=== PATIENT | female | born 1965 | race Caucasian/White ===

== ENCOUNTER → 2023-06-04 08:14 | Outpatient (REF) | payer BC, SELFPAY ==
[2023-06-04 09:10] LABS: % Basophils 0.9 % (0-2); % Eosinophils 2.6 % (0-6); % Immature Granulocytes 0.2 % (0-0.5); % Lymphocytes 36.1 % (20.5-51.1); % Monocytes 7.4 % (1.7-9.3); % Neutrophils 52.8 % (42.2-75.2); Absolute Basophils 0.1 10^3/uL (0-0.2); Absolute Eosinophils 0.1 10^3/uL (0-0.7); Absolute Monocytes 0.4 10^3/uL (0.1-0.6); Absolute Neutrophils 2.9 10^3/uL (1.4-6.5); Hemoglobin 12.9 g/dL (12.0-16.0); Mean Corp Hgb Conc. 32.3 g/dL (33.0-37.0); Mean Platelet Volume 10.9 fL (7.4-10.4); Nucleated Red Blood Cells % 0 %; Platelet Count 246 10^3/uL (130-400); Red Cell Dist. Width 13.9 % (11.5-14.5); White Blood Cell Count 5.4 10^3/uL (4.8-10.8)
[2023-06-04 10:06] LABS: ALT (SGPT) 29 U/L (0-35); AST (SGOT) 27 U/L (14-36); Albumin 4.4 g/dl (3.5-5.0); Alkaline Phosphatase 89 U/L (38-126); Blood Urea Nitrogen 15 mg/dl (7-17); Calcium 9.3 mg/dl (8.4-10.2); Carbon Dioxide 28 mmol/L (22-30); Chloride 105 mmol/L (98-107); Glucose 98 mg/dl (70-99); Sodium 138 mmol/L (135-145); Total Bilirubin 0.7 mg/dl (0.2-1.3); Total Protein 7.2 g/dl (6.3-8.2); eGFR > 60.00
== END ==
LOC: RCS 08:14
PROVIDERS: ATTENDING PHYSICIAN Surgery Plastic and Reconstructive Surgery; FAMILY PHYSICIAN Family Medicine
DX: Z01.818 Encounter for other preprocedural examination (principal)
CPT/HCPCS: 36415; 80053; 85025; 93005

== ENCOUNTER → 2023-06-08 12:48 | Outpatient (REF) | payer BC, SELFPAY | LOC: HWRAD 12:48 | PROVIDERS: ATTENDING PHYSICIAN Surgery Plastic and Reconstructive Surgery; FAMILY PHYSICIAN Family Medicine | DX: Z90.13 Acquired absence of bilateral breasts and nipples (principal) | CPT/HCPCS: 74174; Q9967 ==

== ENCOUNTER 2023-07-01 06:12 | Inpatient (IN) | payer BC, SELFPAY ==
[2023-07-01] VITALS (24 sets, daily range): BP systolic 123–146; BP diastolic 65–79; BMI 29.5
[2023-07-01] MEDS: LOVENOX 40 MG SC (07:09)
[2023-07-01] MEDS: NORMOSOL-R 1000 IV (07:09)
--- NOTE | 2023-07-01 08:23 | W.SUR.PREOP ---
Pre-Operative Surgical Note
-
I have examined this patient prior to the performance of the scheduled procedure.
The patient's condition is unchanged from the time of the current History and
Physical and the patient is able to undergo the scheduled procedure.
--- NOTE | 2023-07-01 17:01 | OR.RPT ---
Operative Report
Operative Report
Surgeon: Bulmaro Medrano MD
Co-surgeon: Delon Keating MD
Insulation Hoseman: Nadiya Muller MD
Pre-op diagnosis:
1.� Personal history of breast cancer
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
3. Animation deformity
Postop diagnosis: Same
Procedure:
1.� Removal of bilateral textured silicone implants
2.� Bilateral partial capsulectomies and lateral capsulorraphy
3.� Bilateral pectoralis major muscle flaps to prepare chest wall for recipient of flaps
4. Bilateral breast reconstruction with MARY flaps
5.� Bilateral internal mammary lymph node biopsies
Anesthesia: General
EBL: 150 cc
Specimens:
1.� Right periprosthetic capsule
2.� Left periprosthetic casule
3.� Right internal mammary lymph node
4.� Left internal mammary lymph node
Drains: 4 - 15 Argentine Abram drains
Complications: none
Indications:
58-year-old female with a past medical history significant for breast cancer.� She has previously undergone bilateral mastectomies and implant based breast reconstruction in the subpectoral plane.� She presented to my colleague Dr. Keating for
revisions due to her animation deformity and contour irregularities. She was interested in moving forward with autologous reconstruction. Given the anticipated bilateral MARY flap breast reconstruction, I was asked to be involved in her care given
the complexity of the case and the need for a co-surgeon to do this as safely and efficiently as possible.
Regarding bilateral free flap breast reconstruction,� she understood the nature of the surgery and all of the risk benefits alternatives were discussed at length.� Specific risks included flap failure or thrombosis, hematoma, seroma, poor wound
healing and compromise to the abdominal wall.� We discussed that her pectoralis major muscles would be returned to their original place along the chest wall and the MARY flaps would be placed on top of the muscles. All questions were answered and
consents were signed.
Operative findings:
Patient was identified in the preoperative area and consents were confirmed. The bilateral breast incisions were marked out as was the elliptical infraumbilical donor site. All questions were answered. She was brought to the operating room and
placed supine on the operative table.� General anesthesia was induced with an endotracheal tube. The arms were tucked bilaterally and a Osorio catheter was placed.� Preoperative Lovenox and antibiotics were administered, and SCDs were placed.� The
patient's bilateral breasts and abdomen were prepped and draped in normal standard fashion using chlorhexidine prep.� A timeout for patient safety was performed.
We initiated the procedure as two separate teams, with one surgeon working in the abdomen while the other surgeon was in the chest. Please see Dr. Keating's separately dictated operative note.
On the left side of the chest, the previous mastectomy scar was incised.� Electrocautery dissection was then performed to get down to the level of the implant capsule.� The capsule was then dissected up to the level of the pectoralis muscle and then
it was opened and the implant was then removed intact.� Partial capsulectomies and lateral capsulorraphy was then performed.�The pectoralis major muscle was then dissected out from the overlying skin and soft tissue and this was then inset back
along the chest wall surface with interrupted 2-0 PDS sutures. This allowed for chest wall reconstruction, returning the pec muscle back where it originally was. It also allowed for recreation of the mastectomy defect and preparation of the chest
wall for receipt of the flap for breast reconstruction.
Next, the internal mammary dissection was performed.� The muscle was split over the fourth intercostal rib and the cartilaginous portion of the rib was excised.� The underlying internal mammary vessels were then meticulously and carefully
dissected.� Once the vessels were fully dissected circumferentially these were allowed to dilate up while attention was turned to the contralateral breast.� A pectoralis block was then performed with marcaine and a 15 [place] Abram drain was placed
through a stab incision the lateral IMF.� This was secured using a 2-0 Prolene suture.
The identical procedure was then performed on the patient's right side.� Again this involved removal of the intact silicone implant, partial capsulectomies and lateral capsulorraphy, pectoralis major muscle flap for chest wall reconstruction and
preparation of the site for receipt of the flap, and internal mammary vessel dissection.� These vessels were similarly prepared and allowed to dilate up with papaverine soaked neuro patties.� A pectoralis block was similarly performed on this side
and a 15 [place] Abram drain was also placed through a stab incision in the lateral IMF on the side.
Of note, internal mammary lymph nodes were noted on both sides. These were dissected out and sent off for pathologic evaluation.
In the abdomen, bilateral MARY flaps were dissected out. This began with incising the proposed markings superiorly and dissection with a slight bevel upwards to the level of the fascia. Undermining of the supraumbilical flap continue in the midline
above the umbilicus. Laterally, this extend near but not all the way to the costal margin. The patient was then flexed at the waist and the lower incision was confirmed to be tenable without undue tension. The patient was returned supine and the
lower marking was incised with a 10 blade. SIEVs were encountered bilaterally and dissected. The flaps were then raised laterally to medially be sure to maintain the perforating vessels above the level of the fascia.� On the right side a 6
box folding machine operator MARY flap with a small muscle cuff was dissected out as there were several small perforators.�On the left side a 2 box folding machine operator MARY flap with a small muscle cuff was dissected out as there were larger caliber perforators.�Both sides
involved a tedious intramuscular dissection to minimize the amount of muscle harvested with the flap. The pedicles were dissected down to level of the iliac vessels.
The right hemiabdominal flap was then transferred up to the left chest.� The microvascular anastomosis was then performed.� This was done using a 2.5 mm chin strap maker for the venous anastomosis.� The arterial anastomosis was performed with a handsewn
technique using 8-0 nylon suture.� Upon removal of the microvascular clamps there was excellent perfusion of the flap.� The flap was then temporarily inset with aracely and attention was turned to the contralateral side.
The left hemiabdominal flap was then transferred up to the right chest.� The microvascular anastomosis was similarly performed.� On this side a 3.5 mm chin strap maker was again utilized for the venous anastomosis.� The arterial anastomosis was performed in
the same fashion as the contralateral side.� Again there was excellent perfusion noted upon removal of the vascular clamps.
While one surgeon was performing the microvascular anastomosis the other surgeon was performing the abdominal wall reconstruction.� This involved reapproximation of the muscles that was divided.� A small piece of Phasix mesh was inset as a underlay
with primary fascial closure.� The fascia was closed with layers of interrupted 0 PDS sutures and a PDS stratafix suture.�A midline abdominal plication was also peformed due to the patient's rectus diastasis.
A TAP block was performed bilaterally for postoperative analgesia.� Two 15 [place] Abram drains were placed in the abdomen.� These were similarly secured using 2-0 Prolene sutures.� The abdominal wall was then closed in a layered fashion.� 2-0 Vicryl
suture was utilized in the Bari's fascia.� The Insorb dermal stapler was then utilized for reapproximation of the deep dermis.� The superficial skin was then closed using 4-0 monoderm barbed suture.� The umbilicus was transposed.� This was inset
using a combination of 3-0 Monocryl in the deep dermis and 4-0 nylon suture superficially.
The MARY flaps were then debulked due to their excessive volume and inset. The breast skin was then revised. This was a nipple sparing reconstruction so a small triangular skin paddle was utilized at the inferior pole of the breast for monitoring. �
The skin was then closed in a layered fashion using 3-0 and 4-0 Monocryl suture.� The MARY flaps were de-epithelialized in all areas that would not be exposed prior to closure.
Doppler signals were identified on both skin islands and there was good punctate bleeding at time of deepithelialization. Signals were marked with 5-0 prolenes.
The wounds were then all dressed and the patient was extubated uneventfully.� All counts were correct at the the completion of the case.� The patient tolerated the procedure very well.� She had an excellent cosmetic outcome.� The patient was then
transferred to the ICU for postoperative� monitoring.
Dr. Vitaliy Keating was my co-surgeon for this case.� His status as a co-surgeon was critical to allow us to function as two separate teams, one in the abdomen and one in the chest, to maximize the safety and efficiency of this case for this patient.
Dr. Nadiya Muller was our assistant quality manager for this case.� Her assistance was critical and medically necessary to allow us to perform this in a safe and timely manner for this patient.� She assisted with retraction, dissection, execution, and closure of
this case.
--- NOTE | 2023-07-01 17:47 | W.IMMPOSTOP ---
Surgical Immed Post Op Note
-
Primary Surgeon: EVY Keating MD
Assisting Surgeon:
Pre-op Diagnosis: history of breast cancer
Post-op Diagnosis: same
Procedure Performed: bilateral delayed D IEP flap reconstruction, removal of bilateral breast implants, bilateral capsulectomies
Anesthesia Type: General
Specimen / Cultures: left and right breast capsules, internal mammary lymph nodes
Estimated Blood Loss: 100 cc
Complications: none
Operative Findings: as expected
--- NOTE | 2023-07-01 17:48 | OR.RPT ---
Operative Report
Operative Report
Surgeon: Delon Keating MD
Co-surgeon: Bulmaro Medrano MD
Drafter Structural: Nadiya Muller MD
Pre-op diagnosis:
1.� Personal history of breast cancer
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
3. Animation deformity
Postop diagnosis: Same
Procedure:
1.� Removal of bilateral textured silicone implants
2.� Bilateral partial capsulectomies and lateral capsulorraphy
3.� Bilateral pectoralis major muscle flaps to prepare chest wall as recipient site of flaps
4. Bilateral breast reconstruction with MARY flaps
5.� Bilateral internal mammary lymph node biopsies
Anesthesia: General
EBL: 150 cc
Specimens:
1.� Right periprosthetic capsule
2.� Left periprosthetic casule
3.� Right internal mammary lymph node
4.� Left internal mammary lymph node
Drains: 4 - 15 [place] Abram drains
Complications: none
Indications:
58-year-old female with a past medical history significant for breast cancer.� She has previously undergone bilateral mastectomies and implant based breast reconstruction in the subpectoral plane.� She presented to me for revisions due to her
animation deformity and contour irregularities. She had very thin skin and a complicated history of postoperative complications with her prior implant surgeries. She was interested in moving forward with autologous reconstruction. Given the
anticipated bilateral MARY flap breast reconstruction, I asked Dr. Bulmaro Medrano to be involved in her care given the complexity of the case and the need for a co-surgeon to do this as safely and efficiently as possible.
Regarding bilateral free flap breast reconstruction,� she understood the nature of the surgery and all of the risk benefits alternatives were discussed at length.� Specific risks included flap failure or thrombosis, hematoma, seroma, poor wound
healing and compromise to the abdominal wall.� We discussed that her pectoralis major muscles would be returned to their original place along the chest wall and the MARY flaps would be placed on top of the muscles. All questions were answered and
consents were signed.
Operative findings:
Patient was identified in the preoperative area and consents were confirmed. The bilateral breast incisions were marked out as was the elliptical infraumbilical donor site. All questions were answered. She was brought to the operating room and
placed supine on the operative table.� General anesthesia was induced with an endotracheal tube. The arms were tucked bilaterally and a Osorio catheter was placed.� Preoperative Lovenox and antibiotics were administered, and SCDs were placed.� The
patient's bilateral breasts and abdomen were prepped and draped in normal standard fashion using chlorhexidine prep.� A timeout for patient safety was performed.
We initiated the procedure as two separate teams, with one surgeon working in the abdomen while the other surgeon was in the chest. Please see Dr. Medrano's separately dictated operative note.
On the left side of the chest, the previous mastectomy scar was incised.� Electrocautery dissection was then performed to get down to the level of the implant capsule.� The capsule was then dissected up to the level of the pectoralis muscle and then
it was opened and the implant was then removed intact.� Partial capsulectomies and lateral capsulorraphy was then performed.�The pectoralis major muscle was then dissected out from the overlying skin and soft tissue and this was then inset back
along the chest wall surface with interrupted 2-0 PDS sutures. This allowed for chest wall reconstruction, returning the pec muscle back where it originally was. It also allowed for recreation of the mastectomy defect and preparation of the chest
wall for receipt of the flap for breast reconstruction.
Next, the internal mammary dissection was performed.� The muscle was split over the fourth intercostal rib and the cartilaginous portion of the rib was excised.� The underlying internal mammary vessels were then meticulously and carefully
dissected.� Once the vessels were fully dissected circumferentially these were allowed to dilate up while attention was turned to the contralateral breast.� A pectoralis block was then performed with marcaine and a 15 [place] Abram drain was placed
through a stab incision the lateral IMF.� This was secured using a 2-0 Prolene suture.
The identical procedure was then performed on the patient's right side.� Again this involved removal of the intact silicone implant, partial capsulectomies and lateral capsulorraphy, pectoralis major muscle flap for chest wall reconstruction and
preparation of the site for receipt of the flap, and internal mammary vessel dissection.� These vessels were similarly prepared and allowed to dilate up with papaverine soaked neuro patties.� A pectoralis block was similarly performed on this side
and a 15 [place] Abram drain was also placed through a stab incision in the lateral IMF on the side.
Of note, internal mammary lymph nodes were noted on both sides. These were dissected out and sent off for pathologic evaluation.
In the abdomen, bilateral MARY flaps were dissected out. This began with incising the proposed markings superiorly and dissection with a slight bevel upwards to the level of the fascia. Undermining of the supraumbilical flap continue in the midline
above the umbilicus. Laterally, this extend near but not all the way to the costal margin. The patient was then flexed at the waist and the lower incision was confirmed to be tenable without undue tension. The patient was returned supine and the
lower marking was incised with a 10 blade. SIEVs were encountered bilaterally and dissected. The flaps were then raised laterally to medially be sure to maintain the perforating vessels above the level of the fascia.� On the right side a 6
energy assistant MARY flap with a small muscle cuff was dissected out as there were several small perforators.�On the left side a 2 energy assistant MARY flap with a small muscle cuff was dissected out as there were larger caliber perforators.�Both sides
involved a tedious intramuscular dissection to minimize the amount of muscle harvested with the flap. The pedicles were dissected down to level of the iliac vessels.
The right hemiabdominal flap was then transferred up to the left chest.� The microvascular anastomosis was then performed.� This was done using a 2.5 mm food general manager for the venous anastomosis.� The arterial anastomosis was performed with a handsewn
technique using 8-0 nylon suture.� Upon removal of the microvascular clamps there was excellent perfusion of the flap.� The flap was then temporarily inset with aracely and attention was turned to the contralateral side.
The left hemiabdominal flap was then transferred up to the right chest.� The microvascular anastomosis was similarly performed.� On this side a 3.5 mm food general manager was again utilized for the venous anastomosis.� The arterial anastomosis was performed in
the same fashion as the contralateral side.� Again there was excellent perfusion noted upon removal of the vascular clamps.
While one surgeon was performing the microvascular anastomosis the other surgeon was performing the abdominal wall reconstruction.� This involved reapproximation of the muscles that was divided.� A small piece of Phasix mesh was inset as a underlay
with primary fascial closure.� The fascia was closed with layers of interrupted 0 PDS sutures and a PDS stratafix suture.�A midline abdominal plication was also peformed due to the patient's rectus diastasis.
A TAP block was performed bilaterally for postoperative analgesia.� Two 15 Turkish Abram drains were placed in the abdomen.� These were similarly secured using 2-0 Prolene sutures.� The abdominal wall was then closed in a layered fashion.� 2-0 Vicryl
suture was utilized in the Bari's fascia.� The Insorb dermal stapler was then utilized for reapproximation of the deep dermis.� The superficial skin was then closed using 4-0 monoderm barbed suture.� The umbilicus was transposed.� This was inset
using a combination of 3-0 Monocryl in the deep dermis and 4-0 nylon suture superficially.
The MARY flaps were then debulked due to their excessive volume and inset. The breast skin was then revised. This was a nipple sparing reconstruction so a small triangular skin paddle was utilized at the inferior pole of the breast for monitoring. �
The skin was then closed in a layered fashion using 3-0 and 4-0 Monocryl suture.� The MARY flaps were de-epithelialized in all areas that would not be exposed prior to closure.
Doppler signals were identified on both skin islands and there was good punctate bleeding at time of deepithelialization. Signals were marked with 5-0 prolenes.
The wounds were then all dressed and the patient was extubated uneventfully.� All counts were correct at the the completion of the case.� The patient tolerated the procedure very well.� She had an excellent cosmetic outcome.� The patient was then
transferred to the ICU for postoperative� monitoring.
Dr. Bulmaro Medrano was my co-surgeon for this case.� His status as a co-surgeon was critical to allow us to function as two separate teams, one in the abdomen and one in the chest, to maximize the safety and efficiency of this case for this patient.
Dr. Nadiya Muller was our fitter's assistant for this case.� Her assistance was critical and medically necessary to allow us to perform this in a safe and timely manner for this patient.� She assisted with retraction, dissection, execution, and closure of
this case.
--- NOTE | 2023-07-01 17:52 | CON.PUL ---
Documented by User: Jose Roberto Cisse MD, Resident 07/01/23 19:03
Consultation
Consultation Request
Date/Time Consultation Requested: 07/01/2023
Date/Time Consultation Performed: 07/01/2023
Requesting Provider: Plastic surgery
Performing Provider: Dr. Miranda
Reason for Consultation: Postop care
Medical History
-
Chief Complaint: Animation deformity and contour irregularities
History of Present Illness:
History obtained from medical records. Patient is a 50-year-old female with history of breast cancer s/p bilateral nipple sparing mastectomy and bilateral tissue expanders 04/2013, s/p bilateral permanent silicone gel implant in breast
reconstruction with removal of tissue expanders, 07/2013. 1 year postop, patient developed swelling and seroma in the right breast which was intractable to drainage. The right axilla dermal matrix and the old implant where removed with placement
of new gel implants 09/08/2014. After 2 months, the same procedure was conducted on the left side also.
Today, patient presents for bilateral textured silicone implants removal with bilateral partial capsulectomies, bilateral breast reconstruction with flaps and bilateral internal mammary lymph node biopsies. The procedure was completed and
patient tolerated.
Past Medical History
Past Medical History: Cancer (History of breast cancer), HTN and Other (Anxiety, vitamin D deficiency)
Past Surgical History: and Other (Bilateral mastectomy, bilateral breast reconstruction/implants)
Social History
Tobacco: Non-smoker
Alcohol: Occasional
Drug: None
Personal:
Living: With Family
Family History
Family History: Reviewed & Not Pertinent
Allergies / Home Medications
Allergies
Allergy/AdvReac Type Severity Reaction Status Date / Time
No Known Allergies Allergy Verified 07/01/23 06:59
Home Medications
�Medication �Instructions �Recorded �Confirmed �Last Taken �Type
Z Quil 1 dose PO DAILY Sleep 06/26/23 07/01/23 06/30/23 21:00 History
escitalopram oxalate 5 mg tablet 5 mg PO HS 06/26/23 07/01/23 06/30/23 21:00 History
(Lexapro)
Review of Systems
-
Unable to Obtain full review of systems at this time due to: Other (Postop sedation)
Physical Exam
-
HEENT: Normocephalic, Moist Mucous Membranes and Thrush (n)
Cardiovascular: S1/S2, Murmur (n), Rub (n) and JVD (n)
Respiratory: Clear and Non-Labored Respirations
GI: Soft, Distended, Non Tender and Normal Bowel Sounds
Neurology: Awake, AO x 3 and No Motor Deficits
Skin: Warm
General: Comfortable
Exam:
Bilateral breast surgical wounds
Assessment
-
ASSESSMENT:
Patient is a 58-year-old female with past medical history of bilateral breast cancer s/p bilateral mastectomies s/p bilateral silicone implants here for bilateral textured silicone implant removal and capsulectomies with lise flap reconstruction.
Impression:
S/p bilateral textured saline implant removal.
Capsulectomies
Lise flaps
CONDITIONS PRIOR TO ADMISSION:
History of breast cancer
Non-smoker
C-sections x 2
Vitamin D deficiency
Anxiety
Impression/Plan:
Seen in ICU S/P above mentioned surgical procedure.
Still sedated and postoperative, appears in respiratory and hemodynamically stable
Keep aspiration precautions
Oxygen protocol as needed
Follow status post breast surgery protocol, monitor Doppler signals and surgical site
IV fluid
Prophylactic antibiotics as ordered
Pain management
DVT prophylaxis: Lovenox
Continue gabapentin and escitalopram as ordered
Breast surgery following closely.
Discussed with RN
Critical care time 35 minutes

Documented by User: Campbell Miranda MD 07/01/23 19:07
Medical History
-
History of Present Illness:
History obtained from medical records. Patient is a 50-year-old female with history of breast cancer s/p bilateral nipple sparing mastectomy and bilateral tissue expanders 04/2013, s/p bilateral permanent silicone gel implant in breast
reconstruction with removal of tissue expanders, 07/2013. 1 year postop, patient developed swelling and seroma in the right breast which was intractable to drainage. The right axilla dermal matrix and the old implant where removed with placement
of new gel implants 09/08/2014. After 2 months, the same procedure was conducted on the left side also.
Today, patient presents for scheduled bilateral textured silicone implants removal with bilateral partial capsulectomies, bilateral breast reconstruction with LISE flaps and bilateral internal mammary lymph node biopsies. The procedure was
completed and patient tolerated.
Seen after surgery, sedated, hemodyn and resp stacy stable, visited in presence of OFFICE MACHINES WIRER
Assessment
-
ASSESSMENT:
Patient is a 58-year-old female with past medical history of bilateral breast cancer s/p bilateral mastectomies s/p bilateral silicone implants here for bilateral textured silicone implant removal and capsulectomies with lise flap reconstruction.
Impression:
S/p bilateral textured saline implant removal.
Capsulectomies
Lise flaps
CONDITIONS PRIOR TO ADMISSION:
History of breast cancer
Non-smoker
C-sections x 2
Vitamin D deficiency
Anxiety
Impression/Plan:
Seen in ICU S/P above mentioned surgical procedure.
Still sedated and postoperative, appears in respiratory and hemodynamically stable
Keep aspiration precautions
Oxygen protocol as needed
Follow status post breast surgery protocol, monitor Doppler signals and surgical site
IV fluid
Prophylactic antibiotics as ordered
Pain management
DVT prophylaxis: Lovenox
Continue gabapentin and escitalopram as ordered
Breast surgery following closely.
Discussed with RN
Critical care time 35 minutes
ATTESTATION
Initial Visit
Seen and examined along Dr Cisse
Consultation noted discussed and edited in presence of Dr Cisse
[2023-07-01] MEDS: LR 1000 IV (18:28)
--- NOTE | 2023-07-01 19:06 | PTCARENOTE ---
1800-Received pt from OR via bed.Pt is sleeping,awakens briefly to voice.SR noted.BP 120/40.IVF infusing.O2 CAM intact.POX 99%.Lungs CTA.Osorio draining yellow urine.BL breast incisions intact to open air.Small amount sero-sang drainage noted.Right
and left breast paddle pulses intact as documented. Pt's at bedside.Plan of care discussed.
[2023-07-01] MEDS: ZOFRAN 4 MG IV (19:16)
[2023-07-01] MEDS: ULTRAM 100 MG PO (19:17)
[2023-07-01] MEDS: TYLENOL 1000 MG PO (19:21)
[2023-07-01] MEDS: COMPAZINE 5 MG IV (19:49)
--- NOTE | 2023-07-01 20:52 | PTCARENOTE ---
received patient from previous shift. admission assessment completed. given Tylenol early for a headache. pt now nauseated given PRN Zofran vomited approx. 30mins after administration. contacted house [employer] for PRN Compazine given as ordered. pt now
resting. bilateral breast doppler pulses present. NS on the monitor. wearned from the simple mask to 4L o2. lungs clear. torrez in place draining clear yellow urine. tolerating clear liquids.
[2023-07-01] MEDS: LEXAPRO 5 MG PO (21:50)
[2023-07-02] VITALS (36 sets, daily range): BP systolic 100–151; BP diastolic 60–81; BMI 29.5
[2023-07-02] MEDS: NEURONTIN 300 MG PO ×2 (00:30→08:07)
[2023-07-02] MEDS: ANCEF 10 IV ×3 (00:30→16:16)
[2023-07-02] MEDS: LR 1000 IV (02:03)
--- NOTE | 2023-07-02 03:34 | PTCARENOTE ---
pt reassessed, hourly pulse checks. pt refusing to keep danae hugger, blankets, or gown on chest. bilateral breasts warm, doppler pulses still present.
[2023-07-02 04:40] LABS: Hematocrit 32.9 % (37.0-47.0); Hemoglobin 10.6 g/dL (12.0-16.0); Mean Corp Hgb Conc. 32.2 g/dL (33.0-37.0); Mean Corpuscular Hgb 27.7 pg (27.0-31.0); Mean Corpuscular Volume 86.1 fL (81.0-99.0); Mean Platelet Volume 11.1 fL (7.4-10.4); Platelet Count 208 10^3/uL (130-400); Red Blood Cell Count 3.82 10^6/uL (4.20-5.40)
[2023-07-02 05:05] LABS: Blood Urea Nitrogen 13 mg/dl (7-17); Calcium 7.7 mg/dl (8.4-10.2); Carbon Dioxide 25 mmol/L (22-30); Chloride 107 mmol/L (98-107); Estimated Creatinine Clearance 96 ml/min; Glucose 134 mg/dl (70-99); Potassium 3.8 mmol/L (3.5-5.1); Sodium 135 mmol/L (135-145); eGFR > 60.00
--- NOTE | 2023-07-02 08:00 | PTCARENOTE ---
Received pt @ change of shift. Pt drowsy, awakens to verbal stimuli, oriented x3. C/O mild h/a, received standing Tylenol- see MAY. Sinus arrhythmia on monitor. Weaned to RA, SpO2 maintaining 95%. Educated on IS by RT, demonstrates understanding.
Hypoactive BS, abd binder in place. R/L breast and R/L lower abd LES drains w mod amts of sang output. Intermittent nausea, no vomiting, prn IV zofran admin-see MAY. Osorio in place draining clear/yellow urine. B/L breast incisions intact, EVETTE,
clean dressing loosely applied over paddle incision. B/L breast paddle pulses intact, confirmed w off-going shift. Instructed on how to report care concerns and call galilea w in reach.
--- NOTE | 2023-07-02 08:02 | W.PN.INTV ---
Today's Communication / Plan
Recommendations
IVFs
Pain mgmt
Atbs
Assessment
-
ASSESSMENT:
Patient is a 58-year-old female with past medical history of bilateral breast cancer s/p bilateral mastectomies s/p bilateral silicone implants here for bilateral textured silicone implant removal and capsulectomies with lise flap reconstruction.
Impression:
S/p bilateral textured saline implant removal.
Capsulectomies
Lise flaps
CONDITIONS PRIOR TO ADMISSION:
History of breast cancer
Non-smoker
C-sections x 2
Vitamin D deficiency
Anxiety
Impression/Plan:
Admitted to ICU after breast surgery 06-30
Keep aspiration precautions
Oxygen protocol as needed, currently on RA, POx 95%
Follow status post breast surgery protocol, monitor Doppler signals at surgical site
IV fluids per protocol: D51/2NS today
Prophylactic antibiotics as ordered: cefazolin
Pain management
DVT prophylaxis: Lovenox
OOB as tolerated
Continue gabapentin and escitalopram as ordered
Breast surgery following closely.
Discussed with RN
Critical care time 35 minutes
Disposition per breast surgery team
Subjective Dataa
Subjective Data
Date of Service:
Date of Service: July 02, 2023
Chief Complaint: Hvac R Instructor Follow Up
Subjective:
No major events reported overnight
Mild post incisional pain
Poor appetite today
Respiratory stacy on room air
Has remained hemodynamically stable
Doppler signals in bilateral surgical sites are present
Review of Systems
General: Fever (n), Sweats, Chills (n) and Satisfactory Appetite (n)
HEENT: Epistaxis (n) and Dysphagia (n)
Cardiopulmonary: Dyspnea (n), Cough (n) and Chest Pain (incisional breast surgical sites)
GI: Abdominal Pain (n), Nausea (n) and Vomiting (n)
Neuro: Weakness (n)
Objective Data
Data Reviewed
Vital Signs / I&O / Oxygen:
Vital Signs
Temp Pulse Resp BP Pulse Ox
98.3 F 81 17 135/66 95
07/02/23 07:46 07/02/23 05:45 07/02/23 05:45 07/02/23 05:00 07/02/23 05:45
Intake and Output
07/01/23 07/02/23 07/03/23
06:59 06:59 06:59
Intake Total 1685 / 1685
Output Total 1880 / 1880
Balance -195 / -195
SaO2 95
Nasal Cannula flow liters per 4
minute
Physical Exam
General: Respiratory Distress (n)
HEENT: Normocephalic and Moist Mucous Membranes
Cardiovascular: Regular Rhythm, Murmur (n), Peripheral Edema (n) and Calf Tenderness (n)
Respiratory: Clear, Non-Labored Respirations and Stridor (n)
GI: Soft, Non Distended and Non Tender
Neurology: Awake, AO x 3 and No Motor Deficits
Skin: Warm
Labs/Micro/Reports
Lab Data
07/02/23 04:17
07/02/23 04:17
[2023-07-02] MEDS: TYLENOL 1000 MG PO ×4 (08:07→21:04)
[2023-07-02] MEDS: COLACE 100 MG PO ×3 (08:07→21:04)
[2023-07-02] MEDS: LOVENOX SC (08:08)
[2023-07-02] MEDS: SENOKOT 8.59999999999999964 MG PO ×2 (08:08→19:57)
[2023-07-02] MEDS: ZOFRAN 4 MG IV ×2 (08:39→17:22)
--- NOTE | 2023-07-02 09:00 | W.PN.PLAS ---
Today's Communication
-
PAP flap protocol postoperative day 1
every hour flap checks for 48 hours
Progress Note
Subjective Data
doing well, denies shortness of breath, pain well-controlled
Objective Data
Vital Signs
Temp Pulse Resp BP Pulse Ox
98.2 F 68 14 133/65 95
07/04/23 10:50 07/04/23 09:00 07/04/23 09:00 07/04/23 09:00 07/04/23 09:30
physical exam:
No acute distress
No increased work of breathing
Bilateral breast flaps with intact Doppler signals, no evidence of venous congestion, appropriate cap refill
Abdominal incision intact
LES drain serosanguineous with appropriate output
Lab Results
07/03/23 04:16
07/03/23 04:16
Assessment / Plan
status post bilateral D IEP flap reconstruction and breast implant removal
Tolerating regular diet
Pain well-controlled
SCDs/Lovenox
PT OT
[2023-07-02] MEDS: LOVENOX 40 MG SC (09:08)
--- NOTE | 2023-07-02 09:55 | W.PN.ANS.POP ---
Anesthesia Post Operative
- Anesthesia Post Op Note
Vital Signs Stable-See Nursing Note: Yes
Airway Patent: Yes
Adequate Pain Control: Yes
Change in Mental Status: No
Current Postoperative Nausea & Vomiting: No
Anesthesia Complications: No
General Anesthetic Recall: No
Unplanned Admission: No
Post Op Hydration Adequate: Yes
[2023-07-02] MEDS: LR IV (10:31)
[2023-07-02] MEDS: OSCAL CAL 500 1000 MG PO ×2 (10:54→19:57)
[2023-07-02] MEDS: D5/0.45%NACL 1000 IV ×2 (10:54→21:04)
--- NOTE | 2023-07-02 12:00 | PTCARENOTE ---
Osorio d/c'd per orders @ 0830, DTV @ 1430. Assisted OOB to chair x 2 @ 0930, generalized weakness, steady gait. Reported slight dizziness on ambulation, improved w rest to chair; BP stable and paddle pulses remain intact. Remains in chair.
Tolerating regular diet. IVF infusing via #20 L wrist. Call calero remains w in reach.
--- NOTE | 2023-07-02 13:06 | CM ---
Patient seen at bedside. Patient states that she lives with her and children in a 2 story home. Patient consult for [facility] discussed and patient indicated that she would like [facility], following discussion of options. CM sent TT to liaison to
determine if patient able to be seen. Patient stated that she has no DME at home. Patient stated that Dr. White was still her family physician and she uses the [facility] pharmacy in [place] on [address] Patient with no concerns regarding food
insecurities. Patient understands that she is for discharge on thursday. CM will continue to follow for discharge planning needs.
Plan; home with VN; pending acceptance for drain care.
--- NOTE | 2023-07-02 15:00 | PTCARENOTE ---
Increased ecchymosis on R breast. Tissue remains soft. Drain remains patent. B/L paddle pulses intact. No c/o pain from surgical site. Dr. Keating notified of ecchymosis. Will monitor.
[2023-07-02] MEDS: NEURONTIN PO ×2 (16:15→21:37)
--- NOTE | 2023-07-02 17:34 | PTCARENOTE ---
Pt. tolerated OOB to chair position approx 7H. Assisted x1 to BSC to void. Voided 300mL of janice urine. Bladder scanned for PVR of 0mL. Beach chair position/ ABD binder maintained. B/L paddle pulses intact. Pt. w 1 episode of vomiting. Pt.
reported nausea relieved from vomit, admin prn Zofran-see MAR; no further episodes. Family @ bedside this evening, updated on current pt. status. Pt.'s call calero remains w in reach.
[2023-07-02] MEDS: MELATONIN 5 MG PO (21:04)
[2023-07-02] MEDS: LEXAPRO 5 MG PO (21:04)
[2023-07-03] VITALS (20 sets, daily range): BP systolic 115–148; BP diastolic 65–87; O2SAT 94; BMI 29.5
--- NOTE | 2023-07-03 01:27 | PTCARENOTE ---
assessed as documented. oob to bedside commode. no c/o pain. melatonin given at HS.
[2023-07-03] MEDS: ZOFRAN 4 MG IV (04:19)
[2023-07-03 04:31] LABS: Hematocrit 29.7 % (37.0-47.0); Hemoglobin 9.7 g/dL (12.0-16.0); Mean Corp Hgb Conc. 32.7 g/dL (33.0-37.0); Mean Corpuscular Hgb 28.4 pg (27.0-31.0); Mean Corpuscular Volume 86.8 fL (81.0-99.0); Mean Platelet Volume 11.1 fL (7.4-10.4); Platelet Count 181 10^3/uL (130-400); Red Blood Cell Count 3.42 10^6/uL (4.20-5.40); Red Cell Dist. Width 14.2 % (11.5-14.5); White Blood Cell Count 10.5 10^3/uL (4.8-10.8)
[2023-07-03 05:27] LABS: Blood Urea Nitrogen 10 mg/dl (7-17); Calcium 7.9 mg/dl (8.4-10.2); Carbon Dioxide 25 mmol/L (22-30); Chloride 108 mmol/L (98-107); Estimated Creatinine Clearance 112 ml/min; Glucose 138 mg/dl (70-99); Potassium 3.6 mmol/L (3.5-5.1); Sodium 136 mmol/L (135-145); eGFR > 60.00
[2023-07-03] MEDS: D5/0.45%NACL 1000 IV (06:31)
--- NOTE | 2023-07-03 07:29 | W.PN.INTV ---
Documented by User: Jose Roberto Cisse MD, Resident 07/03/23 09:13
Today's Communication / Plan
Recommendations
Has remained hemodynamically stable
Doppler signals in bilateral surgical sites are present
Antibiotics discontinued 07/02/2023
Pain management as needed
IV fluid as ordered
Right periprosthetic seroma fluid negative for malignant cells
Aspiration precautions
Assessment
-
ASSESSMENT:
Patient is a 58-year-old female with past medical history of bilateral breast cancer s/p bilateral mastectomies s/p bilateral silicone implants here for bilateral textured silicone implant removal and capsulectomies with lise flap reconstruction.
Impression:
S/p bilateral textured saline implant removal.
Capsulectomies
Lise flaps
CONDITIONS PRIOR TO ADMISSION:
History of breast cancer
Non-smoker
C-sections x 2
Vitamin D deficiency
Anxiety
Impression/Plan:
Admitted to ICU after breast surgery 06-30
Keep aspiration precautions
Oxygen protocol as needed, currently on RA, POx 98%
Follow status post breast surgery protocol, monitor Doppler signals at surgical site
Right periprosthetic seroma fluid negative for malignant cells
IV fluids per protocol: D51/2NS today
Antibiotics discontinued 07/02/2023
Pain management
Hypocalcemia
Improvement
Continue calcium carbonate
Monitor
DVT prophylaxis: Lovenox
OOB as tolerated
Continue gabapentin and escitalopram as ordered
Zofran for nausea as needed
Breast surgery following closely.
Discussed with RN
Disposition per breast surgery team
Subjective Dataa
Subjective Data
Date of Service:
Date of Service: July 03, 2023
Chief Complaint: V Belt Skiver Follow Up
Subjective:
No major events reported overnight
Right periprosthetic seroma fluid negative for malignant cells
Incisional pain improved
Appetite improving
Respiratory stacy on room air
Has remained hemodynamically stable
Doppler signals in bilateral surgical sites are present
Review of Systems
General: Fever (n), Chills (n) and Satisfactory Appetite (n)
HEENT: Epistaxis (n) and Dysphagia (n)
Cardiopulmonary: Dyspnea (n) and Cough (n)
GI: Abdominal Pain (n), Nausea (n) and Vomiting (n)
Neuro: Weakness (n) and Other (Feels foggy)
Objective Data
Data Reviewed
Vital Signs / I&O / Oxygen:
Vital Signs
Temp Pulse Resp BP Pulse Ox
98.0 F 79 20 129/74 91
07/03/23 03:45 07/03/23 06:30 07/03/23 06:30 07/03/23 06:00 07/03/23 06:30
Intake and Output
07/02/23 07/03/23 07/04/23
06:59 06:59 06:59
Intake Total 1685 / 1810 3380 / 3380
Output Total 1880 / 2130 985 / 985
Balance -195 / -320 2395 / 2395
SaO2 91
Nasal Cannula flow liters per 4
minute
Physical Exam
General: Respiratory Distress (n)
HEENT: Normocephalic and Moist Mucous Membranes
Cardiovascular: Regular Rhythm, Murmur (n), Peripheral Edema (n) and Calf Tenderness (n)
Respiratory: Clear, Non-Labored Respirations and Stridor (n)
GI: Soft, Non Distended and Non Tender
Neurology: Awake, AO x 3 and No Motor Deficits
Skin: Warm and Other (Ecchymosis on right breast)
Labs/Micro/Reports
Lab Data
07/03/23 04:16
07/03/23 04:16

Documented by User: Campbell Miranda MD 07/03/23 11:09
Today's Communication / Plan
Recommendations
Has remained hemodynamically stable
Doppler signals in bilateral surgical sites are present
Antibiotics discontinued 07/02/2023
Pain management as needed
IV fluid as ordered
Right periprosthetic seroma fluid negative for malignant cells
Aspiration precautions
Disposition by breast surgery team
Assessment
-
ASSESSMENT:
Mrs Rena Akins is a 58-year-old female with past medical history of bilateral breast cancer s/p bilateral mastectomies s/p bilateral silicone implants here for bilateral textured silicone implant removal and capsulectomies with lise flap
reconstruction.
Impression:
S/p bilateral textured saline implant removal 06-30
Capsulectomies
Lise flaps
CONDITIONS PRIOR TO ADMISSION:
History of breast cancer
Non-smoker
C-sections x 2
Vitamin D deficiency
Anxiety
Impression/Plan:
Admitted to ICU after breast surgery 06-30
Keep aspiration precautions
Oxygen protocol as needed, currently on RA, POx 98%
Follow breast surgery protocol, monitor Doppler signals at surgical site
Right periprosthetic seroma fluid negative for malignant cells
IV fluids per protocol
Antibiotics discontinued 07/02/2023
Pain management
Hypocalcemia
Improvement
Continue calcium carbonate
Monitor
DVT prophylaxis: Lovenox
OOB as tolerated
Continue gabapentin and escitalopram as ordered
Zofran for nausea as needed
Breast surgery following closely.
Discussed with RN
Pulm and hemodynamically stable for transfer out of ICU
Disposition per breast surgery team
ATTENDING PHYSICIAN ATTESTATION:
(Follow-up Visit:)
I personally saw and evaluated the patient along with the FM Resident Dr Cisse.
Discussed with Resident and discussed in rounds with MDT.
I agree with Resident�s findings and plan as documented in the resident�s note, which was edited by myself.
[2023-07-03] MEDS: LOVENOX 40 MG SC (08:05)
[2023-07-03] MEDS: TYLENOL 1000 MG PO ×4 (09:10→23:44)
[2023-07-03] MEDS: SENOKOT 8.59999999999999964 MG PO ×2 (09:11→20:29)
[2023-07-03] MEDS: OSCAL CAL 500 1000 MG PO ×2 (09:11→20:28)
[2023-07-03] MEDS: NEURONTIN 300 MG PO ×3 (09:11→23:44)
[2023-07-03] MEDS: COLACE 100 MG PO (09:11)
--- NOTE | 2023-07-03 09:15 | W.PN.PLAS ---
Today's Communication
-
postop day 2 flap protocol
Ambulate with assistance
Continue every hour checks for 48 hours
Progress Note
Subjective Data
doing well, pain well-controlled, denies shortness of breath
Subjective: Tolerating Regular Diet
Objective Data
Vital Signs
Temp Pulse Resp BP Pulse Ox
98.2 F 68 14 133/65 95
07/04/23 10:50 07/04/23 09:00 07/04/23 09:00 07/04/23 09:00 07/04/23 09:30
physical exam:
No acute distress
No increased work of breathing
Bilateral breast flaps with intact Doppler signals, no evidence of venous congestion, skin islands with appropriate cap refill
Abdominal incision intact
LES drain serosanguineous with appropriate output
Lab Results
07/03/23 04:16
07/03/23 04:16
Assessment / Plan
status post bilateral D IEP flap reconstruction and breast implant removal
Tolerating regular diet
Pain well-controlled
SCDs/Lovenox
PT OT
--- NOTE | 2023-07-03 11:32 | VNURNOTE ---
Home Health Liaison met with patient at 1030 to discuss [facility] nurse visits, schedule and homebound status. Patient is agreeable and understands that visits at home will be 2-3 x per week to assess and teach medical management and LES drain care.
[facility] brochure provided with contact information. Patient is aware that [facility] will contact her for start of care in 1-2 days after discharge from .
[facility] referral completed in [facility] Port.
--- NOTE | 2023-07-03 12:00 | PTCARENOTE ---
Pt reports nausea has subsided. Appetite slightly improved. Denies pain to breasts and abdomen. C/o back aching which was reported as improved when OOB in chair. Ambulated in hallway. Using I/S. Abdominal binder intact. JPs draining
serosanguineous. Has voided 1L so far this shift. All other assessments unchanged.
--- NOTE | 2023-07-03 13:59 | CM ---
CM following re: discharge planning.
Discussed in Rounds, reviewed pt's chart, met with pt. Per Rounds meeting, pt admitted to ICU after breast surgery 07-01-23, remains hemodynamically stable and per surgery pt most likely will be discharged home tomorrow.
Pt is aware and she stated her will transport her home at discharge. Pt i8s aware that [facility] RN will visit her next day of discharge and pt stated she just met with [facility] liaison.
Please fax discharge instructions to [facility] at [phone].
D/C plan: home with [facility] and family support. to transport at discharge.
CM will follow with discharge plan updates as needed.
[2023-07-03] MEDS: COLACE PO ×2 (17:32→21:33)
[2023-07-03] MEDS: D5/0.45%NACL IV (18:49)
[2023-07-03] MEDS: LIDOCAINE 4% PATCH 1 PATCH TOPICAL (20:28)
[2023-07-03] MEDS: ULTRAM 50 MG PO (20:28)
[2023-07-03] MEDS: LEXAPRO 5 MG PO (21:07)
[2023-07-03] MEDS: MELATONIN 5 MG PO (21:07)
--- NOTE | 2023-07-03 21:23 | PTCARENOTE ---
Received pt sitting up in chair, AAOx3. Only complaint is low back pain. Pt. was hesitant to take tramadol but we agreed on halfing the dose and trying it- INDUSTRIAL PLANT CUSTODIAN reduced dose to 50mg. Within an hour, pt reported relief. Lidocaine patch also ordered
and placed. VELEZ, walked into bathroom without issue. SR on tele. BP stable. Afebrile. On RA. Lungs CTA. Breast flap sites pink, body temp, good signals. Q4 checks ongoing. LES drains x4 in place with serosang output. Abdominal binder in place. Pt.
assisted into bed and wants to get some sleep. Monitoring
[2023-07-04] VITALS (10 sets, daily range): BP systolic 96–133; BP diastolic 65–79
--- NOTE | 2023-07-04 | PTCARENOTE ---
Pt resting comfortably without complaints. Reports improvement in back pain with tramadol and lidocaine patch. Assessment unchanged
--- NOTE | 2023-07-04 08:00 | W.PN.INTV ---
Today's Communication / Plan
Recommendations
Post op care
Disposition
Assessment
-
ASSESSMENT:
Mrs Rena Akins is a 58-year-old female with past medical history of bilateral breast cancer s/p bilateral mastectomies s/p bilateral silicone implants here for bilateral textured silicone implant removal and capsulectomies with lise flap
reconstruction.
Impression:
S/p bilateral textured saline implant removal 06-30
Capsulectomies
Lise flaps
CONDITIONS PRIOR TO ADMISSION:
History of breast cancer
Non-smoker
C-sections x 2
Vitamin D deficiency
Anxiety
Impression/Plan:
Admitted to ICU after breast surgery 06-30
Keep aspiration precautions
Oxygen protocol as needed, currently on RA, POx 98%
Follow breast surgery protocol, monitor Doppler signals at surgical site
Right periprosthetic seroma fluid negative for malignant cells
IV fluids per protocol
Antibiotics discontinued 07/02/2023
Pain management
Hypocalcemia
Improved
Continue calcium carbonate, can d/c upon discharge
DVT prophylaxis: Lovenox
OOB as tolerated
Continue gabapentin and escitalopram as ordered
Zofran for nausea as needed
Breast surgery following closely.
Discussed with RN
Pulm and hemodynamically stable for transfer out of ICU, will sign off then
Disposition per breast surgery team
Subjective Dataa
Subjective Data
Date of Service:
Date of Service: July 04, 2023
Chief Complaint: Restoration Officer Follow Up
Subjective:
No major events reported overnight
Slept much better
Feels much better today
Wants to go home
Review of Systems
General: Fever (n), Sweats (n), Chills (n) and Satisfactory Appetite (n)
HEENT: Epistaxis (n)
Cardiopulmonary: Dyspnea (n) and Chest Pain (n)
GI: Abdominal Pain (n), Nausea (n) and Vomiting (n)
Neuro: Weakness (n)
Objective Data
Data Reviewed
Vital Signs / I&O / Oxygen:
Vital Signs
Temp Pulse Resp BP Pulse Ox
98.5 F 60 11 123/79 98
07/04/23 07:38 07/04/23 07:00 07/04/23 07:00 07/04/23 07:00 07/03/23 20:00
Intake and Output
07/03/23 07/04/23 07/05/23
06:59 06:59 06:59
Intake Total 3380 / 3530 1130 / 1130
Output Total 985 / 985 1761 / 1761
Balance 2395 / 2545 -631 / -631
SaO2 98
Nasal Cannula flow liters per 4
minute
Physical Exam
General: Respiratory Distress (n)
HEENT: Normocephalic and Moist Mucous Membranes
Cardiovascular: Regular Rhythm, Murmur (n), Peripheral Edema (n) and Calf Tenderness (n)
Respiratory: Clear, Non-Labored Respirations and Stridor (n)
GI: Soft, Non Distended and Non Tender
Neurology: Awake, AO x 3 and No Motor Deficits
Skin: Warm and Other (Ecchymosis on right breast)
Labs/Micro/Reports
Lab Data
07/03/23 04:16
07/03/23 04:16
[2023-07-04] MEDS: COLACE 100 MG PO (08:10)
[2023-07-04] MEDS: OSCAL CAL 500 1000 MG PO (08:10)
[2023-07-04] MEDS: NEURONTIN 300 MG PO (08:11)
[2023-07-04] MEDS: SENOKOT PO (08:12)
[2023-07-04] MEDS: TYLENOL 1000 MG PO (08:12)
[2023-07-04] MEDS: LOVENOX 40 MG SC (08:13)
--- NOTE | 2023-07-04 10:17 | W.DCSUMMARY ---
Discharge Summary
Discharge Data
Date of Admission: 07/01/23
Date of Discharge: 07/07/23
-
Pending Results: No
Hospital Course
Patient was admitted following delayed D IEP flap reconstruction and implant removal bilaterally. She followed a routine postoperative course. flaps were monitored in the ICU for 48 hours as per protocol. On postop day 3 she was ambulating,
tolerating regular diet, pain well-controlled. She was discharged home with visiting nurse.
Discharge Plan
-
Patient Disposition: Home (Routine Discharge)
Discharge Diagnosis/Procedures: s/p MARY flap breast reconstruction
Condition: Good
Diet: Regular
Activity: No strenuous activity
Driving Restrictions: Not until seen by your Dr
Bathing Restrictions: OK to Shower
Other Services: VN
Wound Care: Aquaphor to incisions, abd pads, abdominal binder - strip and record drain outputs twice daily
Referrals:
UNKNOWN - PT NOT,INTERVIEWE [Family Provider] -
Prescriptions:
New
tramadol 50 mg Tablet
14 mg PO Q6HPRN PRN (Reason: mild pain) 14 Days Qty: 24 0RF
acetaminophen [Tylenol Extra Strength] 500 mg Tablet
1,000 mg PO QID 30 Days Qty: 240 0RF
gabapentin 300 mg Capsule
100 mg PO Q8 30 Days Qty: 30 3RF
diazepam 5 mg Tablet
5 mg PO TIDPRN PRN (Reason: Muscle Spasms) 14 Days Qty: 20 0RF
Continued
escitalopram oxalate [Lexapro] 5 mg Tablet
5 mg PO HS
Z Quil
1 dose PO DAILY
Discharge Orders:
Discharge Patient (As Directed); Ordered 07/04/23
Ordered By: Salvador Keating
Discharge Date and Time
Discharge Date/Time: 07/04/23 11:24
Print Language: URDU
--- NOTE | 2023-07-04 10:17 | W.PN.PLAS ---
Today's Communication
-
Discharge to home with visiting nurse
Progress Note
Subjective Data
Doing well, pain well-controlled, denies shortness of breath
Subjective: Tolerating Regular Diet, Ambulatory and Osorio Removed
Objective Data
Vital Signs
Temp Pulse Resp BP Pulse Ox
98.5 F 54 15 122/77 96
07/04/23 07:38 07/04/23 08:00 07/04/23 08:00 07/04/23 08:00 07/04/23 08:00
Intake and Output
07/03/23 07/04/23 07/05/23
06:59 06:59 06:59
Intake Total 3380 / 3530 1130 / 1130 120 / 120
Output Total 985 / 985 1761 / 1761 0 / 0
Balance 2395 / 2545 -631 / -631 120 / 120
Intake:
Oral fluids 960 / 1010 530 / 530 120 / 120
IV fluids (Total) 2400 / 2500 600 / 600
D5/0.45%NaCl 1,000 ml @ 100 mls 1100 / 1200 600 / 600
/hr IV .Q10H DEYVI Rx#:[id number]
Lr 1,000 ml @ 125 mls/hr IV . 1300 / 1300
Q8H DEYVI Rx#:[id number]
IV piggybacks
Output:
Drain Output (Total) 185 / 185 261 / 261 0 / 0
Left Breast B 75 / 75 103 / 103 0 / 0
Left Lower Abdomen D 25 / 25 33 / 33 0 / 0
Right Breast A 45 / 45 90 / 90 0 / 0
Right Lower Abdomen C 40 / 40 35 / 35 0 / 0
Urine, Osorio 500 / 500
Urine, Voided 300 / 300 1500 / 1500
Other:
Number of approximated LARGE 1 1
amounts of urine
physical exam:
No acute distress
No increased work of breathing
Bilateral breast flaps with intact Doppler signals, skin islands with evidence of good perfusion, no evidence of venous congestion
Abdominal incision intact
LES drain serosanguineous with appropriate output
Lab Results
07/03/23 04:16
07/03/23 04:16
Assessment / Plan
status post bilateral D IEP flap reconstruction and breast implant removal
Tolerating regular diet
Pain well-controlled
SCDs/Lovenox
PT OT
--- NOTE | 2023-07-04 10:33 | PTCARENOTE ---
seen by Dr. Keating, discharge instructions reviewed, assisted to dress, OOB. questions answered, abd binder maintained, drains pinned.
--- NOTE | 2023-07-04 10:53 | CM ---
CM following re: discharge planning.
Reviewed pt's chart, met with pt.
Discharge order is noted.
Pt is aware and she stated her will transport her home. Pt is aware that [facility] RN will visit her tomorrow for drain management.
Please fax discharge instructions to [facility] at [phone].
D/C plan: home with [facility] and family support. to transport
--- NOTE | 2023-07-04 11:22 | PTCARENOTE ---
taken by wc to waiting family car. all belongings included. questions answered.
== END 2023-07-04 11:24 | disposition home health service (06) | DRG 909 ==
LOC: ICU 06:12
PROVIDERS: Nurse Practitioner Family; ADMITTING PHYSICIAN Surgery Plastic and Reconstructive Surgery; CONSULT PHYSICIAN Internal Medicine Pulmonary Disease
PROC: 0PB10ZZ Excision of 1 to 2 Ribs, Open Approach (ICD-10-PCS; 2023-07-01)
PROC: 0HWU0JZ Revision of Synthetic Substitute in Left Breast, Open Approach (ICD-10-PCS; 2023-07-01)
PROC: 0HWT0JZ Revision of Synthetic Substitute in Right Breast, Open Approach (ICD-10-PCS; 2023-07-01)
PROC: 0HPU0JZ Removal of Synthetic Substitute from Left Breast, Open Approach (ICD-10-PCS; 2023-07-01)
PROC: 07B80ZX Excision of Right Internal Mammary Lymphatic, Open Approach, Diagnostic (ICD-10-PCS; 2023-07-01)
PROC: 0KX Muscles, Transfer (ICD-10-PCS; 2023-07-01)
PROC: 0WUF0JZ Supplement Abdominal Wall with Synthetic Substitute, Open Approach (ICD-10-PCS; 2023-07-01)
PROC: 3E0T3BZ Introduction of Anesthetic Agent into Peripheral Nerves and Plexi, Percutaneous Approach (ICD-10-PCS; 2023-07-01)
PROC: 3E0T33Z Introduction of Anti-inflammatory into Peripheral Nerves and Plexi, Percutaneous Approach (ICD-10-PCS; 2023-07-01)
PROC: 0HPT0JZ Removal of Synthetic Substitute from Right Breast, Open Approach (ICD-10-PCS; 2023-07-01)
PROC: 07B90ZX Excision of Left Internal Mammary Lymphatic, Open Approach, Diagnostic (ICD-10-PCS; 2023-07-01)
PROC: 0KXF0Z7 Transfer Right Trunk Muscle, Deep Inferior Epigastric Artery Perforator Flap, Open Approach (ICD-10-PCS; 2023-07-01)
PROC: 0KP Muscles, Removal (ICD-10-PCS; 2023-07-01)
DX: T85.848A Pain due to other internal prosthetic devices, implants and grafts, initial encounter (principal); G89.18 Other acute postprocedural pain; Y83.4 Other reconstructive surgery as the cause of abnormal reaction of the patient, or of later complication, without mention of misadventure at the time of the procedure; Y92.9 Unspecified place or not applicable; N65.0 Deformity of reconstructed breast; M62.08 Separation of muscle (nontraumatic), other site; E55.9 Vitamin D deficiency, unspecified; F41.9 Anxiety disorder, unspecified; Z85.3 Personal history of malignant neoplasm of breast; Z90.13 Acquired absence of bilateral breasts and nipples
CPT/HCPCS: 88304; 88305; 80048; 85027; 88112; 97163; A4648; C1729; C1781